=== PATIENT | male | born 1930 | race Caucasian/White ===

== ENCOUNTER 2017-04-22 23:19 | Emergency (ER) | payer MEDICARE ==
[~2017-04-22] VITALS: Ht 182.9 cm; Wt 75.0 kg
[2017-04-22 23:27] VITALS: BP 160/98
[2017-04-22] MEDS ORDERED: LIDOCAINE 1%, 20ML SQ ONE (23:30)
== END 2017-04-23 01:12 | disposition home or self-care (01) ==
LOC: ED 23:29
DX: S01.111A Laceration without foreign body of right eyelid and periocular area, initial encounter (principal); W19.XXXA Unspecified fall, initial encounter; Y93.89 Activity, other specified; Y92.009 Unspecified place in unspecified non-institutional (private) residence as the place of occurrence of the external cause; Y99.8 Other external cause status
CPT/HCPCS: 12052; 99284